=== PATIENT | female | born 1975 | race Caucasian/White ===

== ENCOUNTER 2022-08-18 15:12 | Inpatient (IN) | payer OTHER, SELFPAY ==
[2022-08-18 15:23] VITALS: PULSE 116; O2SAT 98; BMI 23.7
--- NOTE | 2022-08-18 16:02 | ED.PSYCH ---
HPI - Psych General Chief Complaint: Psychiatric Symptoms Stated Complaint: BEHAVIORAL EMERGENCY,SEC 12 Time Seen by Provider: 08/18/22 15:50 Source: patient and EMS Mode of arrival: EMS Limitations: no limitations History of Present Illness HPI Narrative: 47-year-old female with history of asthma, high cholesterol presents on a Section 12 for change in behavior from a local motel. On arrival patient is quite agitated, screaming, not answering questions. On arrival patient screening. Patient states everyone is trying to kill me. Will not specify who. Tells me she was born in [place] and needs to leave this hospital to visit her family in [place]. Will not answer any questions. Patient making threatening gestures towards this write, quite agitated/volatile. Related Data Home Medications Medication Instructions Recorded Confirmed albuterol sulfate 90 mcg/actuation 2 puff inhalation Q6H PRN 08/18/22 08/18/22 aerosol inhaler (Ventolin HFA) Shortness Of Breath Or Wheezing fluticasone propionate 110 1 puff inhalation BID 08/18/22 08/18/22 mcg/actuation HFA aerosol inhaler (Flovent HFA) fluticasone propionate 50 1 spray intranasal BID 08/18/22 08/18/22 mcg/actuation nasal spray,suspension Allergies Allergy/AdvReac Type Severity Reaction Status Date / Time No Known Allergies Allergy Verified 08/18/22 16:03 Review of Systems Review of Systems: Yes all other systems are reviewed and are negative Constitutional: Constitutional: Reports no additional constitutional complaints, Denies body ache(s), Denies chills, Denies fever(s), Denies headache(s) and Denies weakness Eyes: Eyes: Reports no additional eye complaints and Denies change in vision ENT: Reports system reviewed and no additional complaints, except as documented, Denies dizziness, Denies headache(s), Denies nasal congestion, Denies nasal discharge and Denies neck pain Cardiovascular: Cardiovascular: Reports no additional cardiovascular complaints, Denies chest pain, Denies leg edema and Denies dyspnea Respiratory: Respiratory: Reports no additional respiratory complaints, Denies cough and Denies dyspnea Gastrointestinal: Gastrointestinal: Reports no additional gastrointestinal complaints, Denies abdominal pain, Denies diarrhea, Denies nausea and Denies vomiting Genitourinary: Genitourinary: Reports no additional female genitourinary complaints and Denies urinary incontinence Musculoskeletal: Musculoskeletal: Reports no additional musculoskeletal complaints, Denies back pain, Denies arthralgias, Denies joint swelling, Denies neck pain, Denies numbness and Denies tingling Integumentary/Breasts: Skin/Breast: Reports system reviewed and no additional complaints, except as docu and Denies rash Neurologic: Reports system reviewed and no additional complaints, except as documented, Denies Abnormal speech present, Reports behavioral changes, Denies dizziness, Denies headache(s), Denies numbness, Denies tingling and Denies weakness Psychiatric: Psychiatric: Reports behavioral changes [facility] Past Medical History Attestation statement: The following information was validated with the patient. Source: old records reviewed and nursing notes reviewed Social History Social History Advance Directives: No Advance Directives Information Provided: No Physical Exam Vital Signs: Vital Signs: Last Vital Signs Temp 97.0 F 08/18/22 16:52 Pulse 90 08/18/22 16:52 Resp 20 08/18/22 16:52 BP 139/75 08/18/22 16:52 Pulse Ox 97 08/18/22 16:52 O2 Del Method 08/18/22 16:52 BMI result Body Mass Index 23.7 Const: Other: Agitated General: alert HEENT: Head: Yes normal to inspection Ears: hearing grossly normal bilaterally General nose exam: Normal external nose present Face and sinus: Yes normal facial exam Mouth: Normal oral and palatal mucosa present Throat: Yes posterior oropharynx normal Eyes: General: appearance normal, both eyes and all related structures Pupils: Equal, round and reactive pupils present Neck: Neck: Yes normal visual inspection Chest: Chest palpation & inspection: normal inspection of the chest Resp: Effort & Inspection: normal respiratory effort Auscultation: clear to auscultation bilaterally Cardio: Rate: regular rate Rhythm: regular rhythm Peripheral pulses: Peripheral pulses 2+ throughout GI: Inspection: Yes normal to inspection Palpation (GI): Soft to palpation and nontender Auscultation: normal bowel sounds Back/Spine/Pelvis: Thoracic/Lumbar Spine: thoracic and lumbar spine normal to inspection Skin: General skin exam: no rashes or lesions noted Neuro: General: moves all extremities, no focal motor deficits and normal sensation to monofilament Cranial nerves: Yes Equal, round and reactive pupils present Cognition (Neuro): normal cognition Speech: No Abnormal speech present Gait exam (Neuro): Normal gait present Motor exam (neuro): 5/5 motor strength present throughout Extrem: General: Yes normal to inspection Course Course Course Narrative: We appear to have conflicting stories from [facility] and the provider who is on scene who sent the patient in on a Section 12. [facility] tells me the patient received 2 tablets of 0.5 mg Xanax prior to arrival. Per nursing who spoke to the provider the patient received 2.5 mg of Ativan IM prior to arrival. Medications Administered Discontinued Medications Generic Name Dose Route Start Last Admin Trade Name Freq PRN Reason Stop Dose Admin Diphenhydramine HCl 50 mg 08/18/22 16:03 08/18/22 16:18 Diphenhydramine Hcl 50 Mg/Ml Vial IM 08/18/22 16:04 50 mg ONCE ONE Administration Haloperidol Lactate 5 mg 08/18/22 16:03 08/18/22 16:17 Haloperidol Lactate 5 Mg/Ml Vial IM 08/18/22 16:04 5 mg STAT STA Administration Lorazepam 2 mg 08/18/22 16:03 08/18/22 16:17 Lorazepam 2 Mg/Ml Vial IM 08/18/22 16:04 2 mg ONCE ONE Administration Medical Decision Making Medical Decision Making MDM Narrative: 47-year-old female here on a Section 12 d/t change in behavior. On arrival patient screaming, agitated, making threatening gestures towards this com writer. Patient refusing to answer all other questions. Unable to obtain history of present illness. Patient to receive Haldol, Ativan, Benadryl im Will obtain labs, drug screen, COVID screen Once medically cleared patient will require crisis consultation Differential Diagnosis Differential Diagnoses: The differential diagnosis associated with the presentation includes Consult Healthcare Provider Management of the patient was discussed with: Behavioral Health Provider Per care team patient to be Section 12 bed search-patient placed in physician observation pending disposition Lab Data MDM Lab Attestation statement: I reviewed the patient's lab results. 08/18/22 17:39 08/18/22 17:39 Labs: Lab Results 08/18/22 08/18/22 08/18/22 Range/Units 17:39 17:39 17:39 WBC 9.0 (4.8-10.8) X10*3/uL RBC 4.14 L (4.20-5.50) X10*6/uL Hgb 12.9 (12.0-16.0) g/dl Hct 37.5 (37.0-47.0) % MCV 90.6 (80.0-98.0) fL MCH 31.2 (27.0-33.0) pg MCHC 34.4 (31.0-35.0) g/dl RDW 13.1 (11.0-16.0) % Plt Count 223 (160-400) X10*3/uL MPV 10.8 (9.4-12.3) fL Immature Gran % (Auto) 0.2 (0.0-0.4) % Neut % (Auto) 57.2 (45-73) % Lymph % (Auto) 34.6 (20-40) % [place] % (Auto) 6.0 (2-11) % Eos % (Auto) 1.2 (0-4) % Baso % (Auto) 0.8 (0-2) % Lymph # (Auto) 3.1 (1.2-4.9) X10*3/uL [place] # (Auto) 0.5 (0.1-1.2) X10*3/uL Eos # (Auto) 0.1 (0.0-0.4) X10*3/uL Baso # (Auto) 0.1 (0.0-0.2) X10*3/uL Abs Immat Gran (auto) 0.02 (0.00-0.03) X10*3/uL Absolute Neuts (auto) 5.1 (2.0-8.3) x10*3/uL Absolute Nucleated RBC 0.000 (0.0-0.012) X10*3/uL Nucleated RBC % (auto) 0.0 (0.0-0.2) /100WBC Smear Tech's Comments VERIFIED Sodium 141 (135-145) mmol/L Potassium 3.4 (3.3-5.1) mmol/L Chloride 105 (96-108) mmol/L Carbon Dioxide 25 (22-29) mmol/L Anion Gap 14 (12-20) BUN 11 (9-16) mg/dL Creatinine 0.76 (0.5-1.4) mg/dL Estim Creat Clear Calc 104.5 Estimated GFR > 60 Random Glucose 107 (60-115) mg/dL Calcium 8.9 (8.4-10.2) mg/dL Total Bilirubin 0.4 (0.0-1.0) mg/dL Direct Bilirubin < 0.2 (0.0-0.5) mg/dL AST 29 (5-31) U/L ALT 28 (0-31) U/L Alkaline Phosphatase 74 (39-117) U/L Total Protein 6.3 L (6.5-8.0) g/dL Albumin 4.0 (3.5-5.0) g/dL Salicylates < 5.0 L (15-30) mg/dL Acetaminophen < 17 (<30) mcg/mL Ethyl Alcohol < 10 mg/dL COVID-19 (NIKI) Negative (Negative) COVID-19 Clin Com See Note Discharge Plan Discharge Clinical Impression: Acute psychosis Patient Disposition: Still a Patient Prescriptions: No Action albuterol sulfate [Ventolin HFA] 90 mcg/actuation HFA aerosol inhaler 2 puff inhalation Q6H PRN (Reason: Shortness Of Breath Or Wheezing) fluticasone propionate 50 mcg/actuation spray,suspension 1 spray intranasal BID fluticasone propionate [Flovent HFA] 110 mcg/actuation HFA aerosol inhaler 1 puff inhalation BID Interventions: [place]-Suicide Risk Severity Scale Last Done: 08/18/22 17:51
[2022-08-18] MEDS: Haloperidol Lactate 5 MG/ML VIAL IM (16:17)
[2022-08-18] MEDS: LORazepam 2 MG/ML VIAL IM (16:17)
[2022-08-18] MEDS: diphenhydrAMINE HCL 50 MG/ML VIAL IM (16:18)
--- NOTE | 2022-08-18 16:20 | PC.NURSE ---
unable to obtain full set of vital signs at this time. patient uncooperative and confrontational with staff. IM injection given per MAR
[2022-08-18 16:52] VITALS: BP 139/75; PULSE 90; RESP 20; TEMP 36.1; O2SAT 97
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
[2022-08-18 17:57] LABS: Basophils Absolute Auto 0.1 X10*3/uL (0.0-0.2); Basophils Percent Auto 0.8 % (0-2); Eosinophils Absolute Auto 0.1 X10*3/uL (0.0-0.4); Eosinophils Percent Auto 1.2 % (0-4); Hematocrit 37.5 % (37.0-47.0); Hemoglobin 12.9 g/dl (12.0-16.0); Imm Gran Abs Auto 0.02 X10*3/uL (0.00-0.03); Imm Gran Pct Auto 0.2 % (0.0-0.4); Lymphocytes Absolute Auto 3.1 X10*3/uL (1.2-4.9); Lymphocytes Percent Auto 34.6 % (20-40); MANUAL DIFF FLAG SCAN; Mean Corpuscular HGB Conc 34.4 g/dl (31.0-35.0); Mean Corpuscular Hemoglobin 31.2 pg (27.0-33.0); Mean Corpuscular Volume 90.6 fL (80.0-98.0); Monocytes Absolute Auto 0.5 X10*3/uL (0.1-1.2); Neutrophils Absolute Auto 5.1 x10*3/uL (2.0-8.3); Neutrophils Percent Auto 57.2 % (45-73); PLT CLUMP 1; Red Blood Count 4.14 X10*6/uL (4.20-5.50); Red Cell Distribution Width 13.1 % (11.0-16.0); SCAN SMEAR FLAG 1
[2022-08-18 18:09] LABS: COVID-19 Test Negative (Negative); IDNOW Serial# BCCEAD1C
[2022-08-18 18:15] LABS: Mean Platelet Volume 10.8 fL (9.4-12.3); Platelet Count 223 X10*3/uL (160-400)
[2022-08-18 18:16] LABS: SLIDE REVIEW VERIFIED
[2022-08-18 18:20] LABS: Acetaminophen LAB < 17 mcg/mL (<30); Alanine Aminotransferase 28 U/L (0-31); Alkaline Phosphatase 74 U/L (39-117); Anion Gap 14 (12-20); Aspartate Amino Transferase 29 U/L (5-31); Bilirubin Direct < 0.2 mg/dL (0.0-0.5); Bilirubin Total 0.4 mg/dL (0.0-1.0); Blood Urea Nitrogen 11 mg/dL (9-16); Calcium 8.9 mg/dL (8.4-10.2); Carbon Dioxide 25 mmol/L (22-29); Chloride 105 mmol/L (96-108); Creatinine Clr Calc Pharmacy 104.5; Estimated Glomerular Filt Rate > 60; Ethanol < 10 mg/dL; Glucose Random 107 mg/dL (60-115); Potassium 3.4 mmol/L (3.3-5.1); Salicylate < 5.0 mg/dL (15-30); Sodium 141 mmol/L (135-145); Total Protein 6.3 g/dL (6.5-8.0)
--- NOTE | 2022-08-19 01:18 | PC.NURSE ---
Staff reported patient has unsteady gait and she is fall risk. Patient was not compliant instruction, refused to lay down, safety concerns was notified to the provider, provider notified/ordered 1:1 safety check secondary to fall risk, patient currently in bed resting, will continue to monitor.
[2022-08-19 05:08] LABS: Appearance Urine Clear; Color Urine Yellow; Glucose Urine UA Negative (Negative); Leukocyte Esterase Urine Negative (Negative); Nitrite Urine Negative (Negative); UPreg QC Valid YES; Urine Blood Negative (Negative); Urine Ketones Negative (Negative); Urine Pregnancy NEGATIVE (NEGATIVE); Urine Protein Negative (Neg-Trace)
[2022-08-19 05:22] LABS: Amphetamine Screen Urine Not Detected (Not Detect); Barbiturates, Urine Not Detected (Not Detect); Benzodiazepines Screen Urine Not Detected (Not Detect); Cannabinoid Screen Urine POSITIVE (Not Detect); Cocaine Screen Urine Not Detected (Not Detect); Fentanyl, urine Not Detected (Not Detect); Opiate Screen Urine Not Detected (Not Detect); Phencyclidine Screen Urine Not Detected (Not Detect)
--- NOTE | 2022-08-19 06:26 | PC.NURSE ---
Patient woke up at 0430, up since, in and out of room multiple time, gait is getting more steady, currently in room snacking and refreshing, patient is on 1:1 for fall risk and intrusiveness, patient is experiencing visual hallucination as evidenced by attempting to grab things in air, disposition per [facility] is section 12 inpatient bed search, VSS, will continue to monitor.
[2022-08-19 06:28] VITALS: BP 116/84; PULSE 71; RESP 17; TEMP 36.8; O2SAT 96
--- NOTE | 2022-08-19 06:59 | PC.NURSE ---
assumed care of patient, remains on 1:1, sec [address], pt is aox3, calm and cooperative at this time, awaiting inpt bed search
--- NOTE | 2022-08-19 07:11 | PC.NURSE ---
pt agitated this AM, offered shower for patient with good effect
[2022-08-19] MEDS: LORazepam 1 MG TABLET 2 MG PO (07:46)
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
--- NOTE | 2022-08-19 10:53 | MHC.CARE ---
[facility] did mental status update today 08/19/22 @ 10:30 AM and pt remains inpatient level of care.
[2022-08-19] MEDS: Nicotine Polacrilex 2 MG GUM BUCCAL ×3 (11:27→22:33)
--- NOTE | 2022-08-19 13:32 | MHC.CARE ---
Care Team had a telephonic encounter with [facility] and she reported they exhausted bedsearch.
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
[2022-08-19 19:09] VITALS: BP 139/73; PULSE 85; RESP 20; TEMP 36.9; O2SAT 97
[2022-08-19] MEDS: Prazosin HCL 1 MG CAPSULE PO (19:25)
[2022-08-19] MEDS: Fluticasone Propionate Nasal 16 GM SPRAY 1 SPRAY NOSTRIL-B (19:26)
[2022-08-19] MEDS: risperiDONE 0.5 MG TABLET PO (19:26)
[2022-08-19] MEDS: Fluticasone Propionate 100 MCG BLST.W.DEV 1 PUFF INHALE (19:26)
[2022-08-19 23:45] VITALS: BP 135/59; PULSE 88; RESP 17; TEMP 36.6; O2SAT 99
[2022-08-20] MEDS: Nicotine Polacrilex 2 MG GUM BUCCAL ×6 (01:37→20:13)
[2022-08-20] MEDS: ALPRAZolam 0.5 MG TABLET PO ×2 (02:57→16:55)
[2022-08-20] MEDS: risperiDONE 1 MG TABLET PO (02:57)
[2022-08-20] MEDS: Acetaminophen 325 MG TABLET 975 MG PO (06:18)
--- NOTE | 2022-08-20 06:26 | PC.NURSE ---
Patient slept intermittently, thought content delusional paranoid, patient reports multiple complains, Resperidone 1 mg at 0257 administered for psychosis, PRN Xanax 0.5 mg administered at 0257 per order, Tylenol 975 mg administered at 0618 pending effect, disposition per [facility] is section 12 inpatient bed search, VSS, will continue to monitor.
--- NOTE | 2022-08-20 07:20 | PC.NURSE ---
PT IN COMMON AREA, REMAINS MANIC/DELUSIONAL. HAVING BKFST AT TABLE WITH ANOTHER PT. CALM,COOPERATIVE
[2022-08-20] MEDS: Fluticasone Propionate 100 MCG BLST.W.DEV 1 PUFF INHALE ×2 (08:19→20:11)
[2022-08-20] MEDS: Fluticasone Propionate Nasal 16 GM SPRAY 1 SPRAY NOSTRIL-B ×2 (08:19→20:11)
[2022-08-20 08:34] VITALS: BP 147/86; PULSE 94; TEMP 36.4; O2SAT 98
[2022-08-20] MEDS: Prazosin HCL 1 MG CAPSULE PO (20:13)
[2022-08-20] MEDS: risperiDONE 0.5 MG TABLET PO (20:14)
[2022-08-20 20:45] VITALS: BP 150/85; PULSE 85; RESP 20; TEMP 36.5; O2SAT 97
[2022-08-21] MEDS: Nicotine Polacrilex 2 MG GUM BUCCAL ×7 (01:09→23:28)
[2022-08-21 02:53] VITALS: BP 144/75; PULSE 80; RESP 16; TEMP 36.4; O2SAT 99
--- NOTE | 2022-08-21 05:56 | PC.NURSE ---
Patient slept most part of the night, thought content delusional paranoid, medication compliant, behavior non concerning, disposition per [facility] is section 12 inpatient bed search, no update on bed search, VSS, will continue to monitor.
--- NOTE | 2022-08-21 07:55 | PC.NURSE ---
Report from Narendra rn, care assumed for pt at this time, pt awake and ambulating around the milieu, requesting markers and portable phone. Calm and cooperative, pleasant. In-patient bedsearch at this time.
[2022-08-21 08:09] VITALS: BP 132/76; PULSE 100; RESP 16; TEMP 36.8; O2SAT 98
[2022-08-21] MEDS: Fluticasone Propionate Nasal 16 GM SPRAY 1 SPRAY NOSTRIL-B (08:24)
--- NOTE | 2022-08-21 08:50 | PC.NURSE ---
Pt refusing risperdal and prazosin at this time, states the prazosin she only takes at night and states she cannot take risperdal because she is highly allergic when asked about the reaction, pt became agitated and hyperverbal with flight of ideas. Pt believes her name is not Petrona but that it is Verónica and that Petrona is the name of her daughter, that she has arik button syndrome and that she is in her 80's.
--- NOTE | 2022-08-21 10:27 | PC.NURSE ---
Pt meeting with clinicians from [facility] at this time for MSU.
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
--- NOTE | 2022-08-21 18:42 | PC.NURSE ---
Patient gave verbal permission to speak to Svetlana Raj (daughter), Sarthak Nath (boyfriend), and Mike Newsome (son in law) . Patient signed Release of information but signed with naomy Augustin .
[2022-08-21 21:38] VITALS: BP 143/79; PULSE 96; RESP 18
[2022-08-21] MEDS: Prazosin HCL 1 MG CAPSULE PO (21:42)
[2022-08-22] MEDS: Acetaminophen 325 MG TABLET 650 MG PO (00:07)
[2022-08-22] MEDS: Nicotine Polacrilex 2 MG GUM BUCCAL ×5 (04:56→20:17)
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
[2022-08-22] MEDS: Fluticasone Propionate 100 MCG BLST.W.DEV 1 PUFF INHALE (11:29)
[2022-08-22] MEDS: Fluticasone Propionate Nasal 16 GM SPRAY 1 SPRAY NOSTRIL-B (11:29)
[2022-08-22] MEDS: hydrOXYzine HCL 25 MG TABLET PO (11:29)
[2022-08-22] MEDS: Nystatin Cream 15 GM TUBE 1 APPL TOPICAL (12:36)
[2022-08-22] MEDS: Hydrocortisone 2.5 % Rectal Cr 30 GM TUBE 1 APPL PR (12:36)
[2022-08-22] MEDS: Albuterol Sulfate 90 MCG 8 GM INHALER 2 PUFF INHALE (12:36)
[2022-08-22] MEDS: Silver Sulfadiazine 1 % Cream 20 GM TUBE 1 APPL TOPICAL (12:36)
[2022-08-22] MEDS: Gabapentin 400 MG CAPSULE 800 MG PO ×2 (14:27→20:12)
[2022-08-22] MEDS: diphenhydrAMINE HCL 25 MG CAPSULE 50 MG PO (16:43)
[2022-08-22] MEDS: ALPRAZolam 0.5 MG TABLET 1 MG PO (16:49)
[2022-08-22 20:10] VITALS: BP 154/74; PULSE 77; RESP 18; TEMP 36.4; O2SAT 97
[2022-08-22] MEDS: Prazosin HCL 1 MG CAPSULE PO (20:12)
[2022-08-23] MEDS: Nicotine Polacrilex 2 MG GUM BUCCAL ×7 (03:02→23:11)
[2022-08-23] MEDS: Gabapentin 400 MG CAPSULE 800 MG PO ×3 (08:16→21:47)
[2022-08-23] MEDS: Fluticasone Propionate Nasal 16 GM SPRAY 1 SPRAY NOSTRIL-B ×2 (08:17→22:30)
[2022-08-23] MEDS: Fluticasone Propionate 100 MCG BLST.W.DEV 1 PUFF INHALE ×2 (08:17→22:30)
[2022-08-23] MEDS: Albuterol Sulfate 90 MCG 8 GM INHALER 2 PUFF INHALE ×2 (08:17→23:07)
[2022-08-23 08:49] VITALS: BP 122/77; PULSE 103; RESP 20; TEMP 36.7; O2SAT 99
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
[2022-08-23] MEDS: Silver Sulfadiazine 1 % Cream 20 GM TUBE 1 APPL TOPICAL (09:09)
[2022-08-23] MEDS: Hydrocortisone 2.5 % Rectal Cr 30 GM TUBE 1 APPL PR ×2 (09:09→22:29)
[2022-08-23] MEDS: Nystatin Cream 15 GM TUBE 1 APPL TOPICAL ×2 (09:09→22:29)
[2022-08-23] MEDS: Prazosin HCL 1 MG CAPSULE PO (21:47)
[2022-08-23 21:50] VITALS: BP 119/67; PULSE 107; TEMP 36.1; O2SAT 98
[2022-08-24] MEDS: Nicotine Polacrilex 2 MG GUM BUCCAL ×2 (03:48→08:06)
[2022-08-24 07:00] VITALS: BMI 31.8
[2022-08-24 07:55] VITALS: BP 136/80; PULSE 106; RESP 18; TEMP 36.7; O2SAT 98
[2022-08-24] MEDS: Fluticasone Propionate 100 MCG BLST.W.DEV 1 PUFF INHALE (08:06)
[2022-08-24] MEDS: Fluticasone Propionate Nasal 16 GM SPRAY 1 SPRAY NOSTRIL-B (08:06)
[2022-08-24] MEDS: Gabapentin 400 MG CAPSULE 800 MG PO (08:06)
[2022-08-24] MEDS: Albuterol Sulfate 90 MCG 8 GM INHALER 2 PUFF INHALE (08:11)
[2022-08-24] MEDS: Silver Sulfadiazine 1 % Cream 20 GM TUBE 1 APPL TOPICAL (08:12)
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
[2022-08-24] MEDS: ALPRAZolam 0.5 MG TABLET 1 MG PO (09:40)
--- NOTE | 2022-08-24 10:39 | PC.NURSE ---
Patient is alert, fully oriented, pleasant and cooperative with discharge process. She verbalizes understanding of discharge medications and how to access care in case of crisis or medical emergency. She denies current physical complaint
== END 2022-08-24 11:58 | disposition home or self-care (01) | DRG 750 ==
LOC: HO.ED 08-20 15:57 → HO.PADLT16 08-21 14:02
PROVIDERS: Nurse Practitioner Family; Admitting Provider Psychiatry & Neurology Psychiatry; Emergency Provider Emergency Medicine; Visit Provider Social Worker
DX: F25.0 Schizoaffective disorder, bipolar type (principal); E78.00 Pure hypercholesterolemia, unspecified; F17.210 Nicotine dependence, cigarettes, uncomplicated; J45.909 Unspecified asthma, uncomplicated; Z20.822 Contact with and (suspected) exposure to COVID-19; Z71.6 Tobacco abuse counseling; Z79.51 Long term (current) use of inhaled steroids; Z79.899 Other long term (current) drug therapy
CPT/HCPCS: 80048; 80076; 80143; 80179; 80307; 81003; 81025; 82077; 85025; 87635; 99285; J1200; J2060